=== PATIENT | female | born 1940 | race Caucasian/White ===

== ENCOUNTER 2016-10-08 11:06 | Observation (INO) ==
[2016-10-08] MEDS ORDERED: 0.9 % Sodium Chloride 1,000 ML IVC ONE (11:32)
--- NOTE | 2016-10-08 11:33 | Emergency Department Note ---
Disposition Clinical Impression: Intractable diarrhea, Mild dehydration Diverticulitis large intestine Qualifiers: Diverticulitis bleeding: without bleeding Diverticulitis complication: without perforation or abscess Qualified Code(s): K57.32 - Diverticulitis of large intestine without perforation or abscess without bleeding Disposition: Admitted As Inpatient Forms: ED Satisfaction Letter Nausea/Vomiting/Diarrhea HPI - General Chief complaint: ED Nausea/Vomiting/Diarrhea Stated complaint: diarrhea and weakness Time Seen by Provider: 10/08/16 11:27 Source: patient Limitations: no limitations Nursing Notes Reviewed: Yes Vital Signs Reviewed: Yes - History of Present Illness Pt Subjective Complaint: diarrhea Onset (ago): day(s) (4) Description of emesis: watery Description of Diarrhea: water Number of episodes: 15 Associated Abdominal Pain: No Improves with: nothing Worsens with: eating Context: recent antibiotic use (2 courses of amoxicillin for dental extraction) Associated symptoms: Reports: malaise, weakness, other (hypotension) - Related Data Home Medications Medication Instructions Recorded Confirmed Cholecalciferol (Vitamin D3) 1,000 unit PO DAILY 12/30/15 10/07/16 [Vitamin D3] Metformin [Glucophage] 500 mg PO BIDWM 12/30/15 10/07/16 Metoprolol [Lopressor] 50 mg PO BID 12/30/15 10/07/16 [place]-3 Fatty Acids [Fish Oil] 1 mg PO DAILY 12/30/15 10/07/16 Previous Rx's Medication Instructions Recorded HYDROcodone/Acet 5/325 mg [Pier[place] 1 tab PO Q6H PRN #10 tab 09/28/16 5-325 mg] Diphenoxylate/Atropine [Lomotil] 1 - 2 tab PO TID PRN #20 tablet 10/07/16 Ondansetron [Zofran] 8 mg PO TID PRN #20 tablet 10/07/16 Allergies Allergy/AdvReac Type Severity Reaction Status Date / Time No Known Allergies Allergy Verified 10/07/16 14:19 All systems ED: reviewed and negative except as stated. Constitutional: Reports: weakness. Denies: fever Gastrointestinal: Denies: nausea, vomiting, hematemesis, melena, hematochezia Past Medical History - Past Medical History Source: patient, nursing notes reviewed Medical history: Reports: diabetes, hypertension - Social History Smoking Status: Never smoker Smokeless Tobacco Status: No Alcohol use: Reports: none Drug use: Reports: none Physical Exam - General Limitations: no limitations General appearance: alert, in no apparent distress - Head Head exam: atraumatic, normocephalic, normal inspection - Eye Eye exam: Present: normal appearance, PERRL, EOMI - Expanded Eye Exam Pupils: Left: reactive - ENT ENT exam: normal exam, normal oropharynx, mucous membranes moist - Expanded ENT Exam External ear exam: Present: normal external inspection Mouth exam: Present: normal external inspection Teeth exam: Present: normal inspection Throat exam: Present: normal inspection - Neck Neck exam: Present: normal inspection, full ROM, trachea midline - Chest Chest inspection: Present: normal inspection, symmetric chest wall rise - Respiratory Respiratory exam: Present: normal lung sounds bilaterally - Cardiovascular Cardiovascular exam: Present: regular rate, normal rhythm, normal heart sounds - Abdominal Exam Abdominal exam: Present: soft, Non-Tender. Absent: tenderness, distention, guarding, rebound, rigidity - Extremities Exam Extremities exam: Present: normal inspection, full ROM. Absent: tenderness, pedal edema - Expanded Upper Extremity Exam Shoulder exam: Present: normal inspection, full ROM Arm exam: Present: normal inspection, full ROM Elbow exam: Present: normal inspection, full ROM Forearm/Wrist exam: Present: normal inspection, full ROM Hand exam: Present: normal inspection, full ROM Vascular exam: Normal: capillary refill, radial pulse - Expanded Lower Extremity Exam Hip/Pelvis exam: Present: normal inspection, full ROM Upper leg exam: Present: normal inspection, full ROM Knee exam: Present: normal inspection, full ROM Lower leg exam: Present: normal inspection, full ROM Ankle exam: Present: normal inspection, full ROM Foot/toe exam: Present: normal inspection, full ROM Neurovascular/Tendon exam: Absent: motor deficit, sensory deficit, tendon deficit - Back Exam Back exam: Present: normal inspection, full ROM. Absent: tenderness - Neurological Exam Neurological exam: Present: alert, oriented X3 - Expanded Neurological Exam Patient oriented to: Present: person, place, time Coma Scale Eye Opening: Spontaneous Coma Scale Motor Response: Obeys Commands Coma Scale Verbal Response: Oriented Coma Scale Total: 15 - Psychiatric Psychiatric exam: Present: normal affect, normal mood - Skin Skin exam: Present: warm, dry, intact, normal color Course - Consultations Consultation #1: dr. christ medina, stool for c-diff then antibiotic Time: 15:16 Vital Signs Temperature 97.6 F 04/02/17 11:08 Pulse Rate 65 10/08/16 11:08 Respiratory Rate 18 10/08/16 11:08 Blood Pressure 111/67 10/08/16 11:08 O2 Sat by Pulse Oximetry 100 10/08/16 11:08 Temperature 97.6 F 10/08/16 11:08 Pulse Rate 75 10/08/16 13:53 Respiratory Rate 18 10/08/16 13:53 Blood Pressure 117/65 10/08/16 13:53 O2 Sat by Pulse Oximetry 97 10/08/16 13:53 Oxygen Delivery Oxygen Delivery Room Air Nausea/Vomiting/Diarrhea - Lab Data Result diagrams: 10/08/16 11:46 10/08/16 11:46 Lab Results 10/08/16 10/08/16 Range/Units 11:46 11:46 WBC 8.5 (4.3-11.1) K/mcL RBC 3.93 (3.82-4.97) M/mcL Hgb 11.1 L (11.5-15.4) g/dL Hct 33.8 L (35.3-44.9) % MCV 86.0 (83.0-100.0) fL MCH 28.2 (28.0-33.3) pg MCHC 32.8 (31.6-35.5) g/dL RDW 13.9 (11.5-14.5) % Plt Count 279 (140-400) K/mcL MPV 10.3 (9.4-12.4) fL Immature Gran % 0.5 (0-4) % Seg Neutrophils % 69.2 % Lymphocytes % 23.0 % Monocytes % 4.9 % Eosinophils % 2.3 % Basophils % 0.1 % Neutrophils # 5.9 (1.6-8.9) K/mcL Lymphocytes # 2.0 (0.6-4.6) K/mcL Monocytes # 0.4 (0.0-1.3) K/mcL Eosinophils # 0.2 (0.0-0.6) K/mcL Basophils # 0.0 (0.0-0.2) K/mcL Sodium 135 L (136-145) mEq/L Potassium 3.6 (3.5-4.5) mEq/L Chloride 102 (98-109) mEq/L Carbon Dioxide 18 L (19-29) mEq/L BUN 35 H (7-20) mg/dL Creatinine 1.48 H (0.57-1.11) mg/dL Est GFR ( Amer) 42 L (> 60) Est GFR (Non-Af Amer) 34 L (> 60) BUN/Creatinine Ratio 24 (6-26) Glucose 128 H (70-99) mg/dL Calculated Osmolality 290 (280-300) Calcium 9.9 (8.6-10.8) mg/dL Total Bilirubin 0.4 (0.2-1.2) mg/dL AST 29 (5-34) Units/L ALT 18 (0-55) Units/L Alkaline Phosphatase 81 (38-126) Units/L Serum Total Protein 7.8 (6.0-8.3) g/dL Albumin 3.6 (3.5-5.0) g/dL Globulin 4.2 H (2.4-3.5) g/dL Albumin/Globulin Ratio 0.9 L (1.1-2.2) Lipase 127 H (8-78) Units/L
[2016-10-08 11:56] LABS: Basophils % 0.1 %; Eosinophils # 0.2 K/mcL (0.0-0.6); Eosinophils % 2.3 %; Hematocrit 33.8 % (35.3-44.9); Hemoglobin 11.1 g/dL (11.5-15.4); Immature Granulocytes % 0.5 % (0-4); Mean Corpuscular HGB Conc 32.8 g/dL (31.6-35.5); Mean Corpuscular Hemoglobin 28.2 pg (28.0-33.3); Mean Platelet Volume 10.3 fL (9.4-12.4); Monocytes # 0.4 K/mcL (0.0-1.3); Monocytes % 4.9 %; Neutrophils # 5.9 K/mcL (1.6-8.9); Platelet Count 279 K/mcL (140-400); Red Blood Count 3.93 M/mcL (3.82-4.97); Red Cell Distribution Width 13.9 % (11.5-14.5); Segmented Neutrophils % 69.2 %
[2016-10-08 12:07] LABS: Albumin 3.6 g/dL (3.5-5.0); Albumin/Globulin Ratio 0.9 (1.1-2.2); Bilirubin,Total 0.4 mg/dL (0.2-1.2); Calcium 9.9 mg/dL (8.6-10.8); Globulin 4.2 g/dL (2.4-3.5); Potassium 3.6 mEq/L (3.5-4.5); Total Protein 7.8 g/dL (6.0-8.3)
[2016-10-08] MEDS ORDERED: Naloxone 0.4 MG/ML INJ IVP PRN (16:36)
[2016-10-08] MEDS ORDERED: Acetaminophen 325 MG TABLET PO PRN (16:36)
[2016-10-08] MEDS ORDERED: D5% in Water 1,000 ML IVC PRN (16:40)
[2016-10-08] MEDS ORDERED: *HR* Dextrose 50 % in Water (Syg) 50 ML SYRINGE IVP PRN (16:40)
[2016-10-08] MEDS ORDERED: Dextrose Gel 15 GM PO PRN ×2 (16:40)
--- NOTE | 2016-10-08 16:50 | Internal Med History&Physical ---
<GuptaNery M - Last Filed: 10/08/16 17:06> Date of Encounter: 10/08/16 Time of Encounter: 16:41 Assessment and Plan (1) Diverticulitis large intestine Current visit: Yes Status: Acute Patient with diarrhea for last [address] abd/pelvis showed acute mild diverticulitis of proximal sigmoid colon. Low residue diet. IV fluids 0.9NS at 100mL/hr stool sent for C.diff. Stool cultures ordered. IVPB cipro and flagyl Qualifiers: Diverticulitis bleeding: without bleeding Diverticulitis complication: without perforation or abscess Qualified Code(s): K57.32 - Diverticulitis of large intestine without perforation or abscess without bleeding (2) Acute kidney injury Current visit: Yes Status: Acute BUN/Cr 35/1.48 likely due to diarrhea and dehydration. Patient received 1L bolus and will get IV fluids of 0.9NS at 100mL/hr. Avoid NSAIDS and nephrotoxins. Recheck chemistry in the morning. (3) Mild dehydration Current visit: Yes Status: Acute Patient with diarrhea for last 4 days. BUN/Cr 35/1.48. On exam, with dry mucous membranes. 1L fluid bolus given in ED IV fluids 0.9NS at 100mL/hr encourage PO intake. (4) Intractable diarrhea Current visit: Yes Status: Acute IV hydration 0.9NS at 100mL/hr stool sent for C.diff. Stool cultures ordered. IVPB cipro and flagyl (5) Type 2 diabetes mellitus Current visit: Yes Status: Acute Patient reports she was previously on metformin, but is now diet controlled. Will check blood sugars ACHS and give sliding scale correction dose. Hypoglycemic protocol. Qualifiers: Diabetes mellitus complication status: without complication Diabetes mellitus intermediate card tender insulin use: without senior living use Qualified Code(s): E11.9 - Type 2 diabetes mellitus without complications (6) DVT prophylaxis Current visit: Yes Status: Acute Ambulate with assistance anti-embolic stockings Heparin 5000u SQ TID Internal Medicine - H&P: HPI Chief complaint: diarrhea Admitted From: Emergency Dept Plans for Post Hospital Care: Home History of present illness: Ms. Villavicencio is a 76 year old female with hypertension, mitral valve stenosis and diet-controlled type 2 diabetes who presented to the ED today with complaints of diarrhea and weakness. She reports she had a tooth extraction last Sunday for whcih she received 2 rounds of amoxicillin, and she has not felt well since. she reports diarrhea started 4 days ago and is watery and has been worsening over the last 4 days to the point she is incontinent at times. She also reports increasing weakness, lightheadedness and dizziness. She reports poor appetite, but is able to tolerate food, and denies nausea or vomiting. She denies fever, chills. She denies chest pain, palpitations, shortness of breath. Evaluation in the ED included CT abd/pelvis which showed acute mild diverticulitis of the proximal sigmoid colon. WBC count was normal at 8.5. BUN and Creatinine were elevated to 35 and 1.48 respectively, likely due to dehydration. On exam, patient is pale, alert and oriented, in no acute distress. Heart has regular rate and rhythm with a diastolic murmur. Lungs are clear bilaterally to auscultation. Abdomen is soft, nontender with positive bowel sounds. Past Med Surg Social Fam HX - Past Medical History Medical history: diabetes, hypertension - Past Surgical History Surgical History: , cholecystectomy, hysterectomy - Social History Smoking Status: Never smoker Smokeless Tobacco Status: No Alcohol use: none Drug use: none - Family History Mother Living Status: Age at : 77 Cause of : pnuemonia Father Living Status: Age at : 80 Cause of : CVA, OR Hx Family Cardiac Disorders: Yes Internal Medicine - H&P: Meds Cholecalciferol (Vitamin D3) [Vitamin D3] 1,000 unit PO DAILY 12/30/15 [History] Metoprolol [Lopressor] 50 mg PO BID 12/30/15 [History] [place]-3 Fatty Acids [Fish Oil] 1 mg PO DAILY 12/30/15 [History] Diphenoxylate/Atropine [Lomotil] 1 - 2 tab PO TID PRN #20 tablet 10/07/16 [Rx] Lisinopril/Hydrochlorothiazide [Zestoretic 20-25 mg Tablet] 1 tab PO DAILY 10/08 [History] Allergies No Known Allergies Allergy (Verified 10/07/16 14:19) All Systems PM: A 10-system review of systems was performed and is negative for pertinent findings except as documented above in the HPI. - Constitutional Constitutional: weakness, no chills, no fever(s), no night sweats - EENT Eyes: no change in vision, no discharge, no pain, no photophobia Ears: no ear discharge, no ear pain, no tinnitus Nose, mouth and throat: no dysphagia, no nasal discharge, no neck pain, no sore throat - Cardiovascular Cardiovascular ROS IM: lightheadedness, no chest pain, no diaphoresis, no dyspnea, no palpitations, no syncope - Respiratory Respiratory: no cough, no dyspnea, no wheezing, no excessive phlegm production - Gastrointestinal Gastrointestinal: diarrhea, no abdominal pain, no hematemesis, no hematochezia, no melena, no nausea, no vomiting - Genitourinary Genitourinary: no change in urinary stream, no dysuria, no flank pain, no hematuria - Musculoskeletal Musculoskeletal ROS IM: no numbness, no tingling - Integumentary Integumentary IM: no rash, no unusual bruising - Neurological Neurological ROS: no confusion, no convulsions, no focal weakness, no numbness, no tingling, no tremor(s) - Hematologic/Lymphatic Hematologic/Lymphatic: no easy bruising - Constitutional Vitals: Temp Pulse Resp BP Pulse Ox 97.6 F 77 16 125/64 95 10/08/16 11:08 10/08/16 15:19 10/08/16 15:37 10/08/16 15:37 10/08/16 15:19 General appearance: Present: A&O X 3, pleasant, no acute distress - Head Head exam: Present: atraumatic, normocephalic - Eye Eye exam: Present: PERRL, conjuntiva pink, sclera anicteric Pupils: Present: PERRL - ENT ENT exam: Present: mucous membranes dry - Neck Neck exam general surgery: Present: supple, trachea midline. Absent: lymphadenopathy - Respiratory Respiratory exam: Present: CTAB. Absent: accessory muscle use, rales, rhonchi, wheezes - Cardiovascular Cardiovascular exam: Present: RRR, +S1, +S2. Absent: diastolic murmur, gallop, rubs, systolic murmur - GI/Abdominal GI/Abdominal exam: Present: normal bowel sounds, soft, no peritoneal signs. Absent: distended, tenderness - Extremities Exam Extremities exam: Present: warm, radial pulses palpable and symetrical. Absent : calf tenderness, cyanotic, pedal edema - Neurological Exam Neurological exam: Present: CN II-XII intact, oriented X3, no focal deficits. Absent: facial droop, speech deficit - Skin Skin exam: Present: dry, intact Internal Med - H&P Results - Labs CBC & Chem 7: 10/08/16 11:46 10/08/16 11:46 Labs: All Lab Results (24 Hours) 10/08/16 10/08/16 Range/Units 11:46 11:46 WBC 8.5 (4.3-11.1) K/mcL RBC 3.93 (3.82-4.97) M/mcL Hgb 11.1 L (11.5-15.4) g/dL Hct 33.8 L (35.3-44.9) % MCV 86.0 (83.0-100.0) fL MCH 28.2 (28.0-33.3) pg MCHC 32.8 (31.6-35.5) g/dL RDW 13.9 (11.5-14.5) % Plt Count 279 (140-400) K/mcL MPV 10.3 (9.4-12.4) fL Immature Gran % 0.5 (0-4) % Seg Neutrophils % 69.2 % Lymphocytes % 23.0 % Monocytes % 4.9 % Eosinophils % 2.3 % Basophils % 0.1 % Neutrophils # 5.9 (1.6-8.9) K/mcL Lymphocytes # 2.0 (0.6-4.6) K/mcL Monocytes # 0.4 (0.0-1.3) K/mcL Eosinophils # 0.2 (0.0-0.6) K/mcL Basophils # 0.0 (0.0-0.2) K/mcL Sodium 135 L (136-145) mEq/L Potassium 3.6 (3.5-4.5) mEq/L Chloride 102 (98-109) mEq/L Carbon Dioxide 18 L (19-29) mEq/L BUN 35 H (7-20) mg/dL Creatinine 1.48 H (0.57-1.11) mg/dL Est GFR ( Amer) 42 L (> 60) Est GFR (Non-Af Amer) 34 L (> 60) BUN/Creatinine Ratio 24 (6-26) Glucose 128 H (70-99) mg/dL Calculated Osmolality 290 (280-300) Calcium 9.9 (8.6-10.8) mg/dL Total Bilirubin 0.4 (0.2-1.2) mg/dL AST 29 (5-34) Units/L ALT 18 (0-55) Units/L Alkaline Phosphatase 81 (38-126) Units/L Serum Total Protein 7.8 (6.0-8.3) g/dL Albumin 3.6 (3.5-5.0) g/dL Globulin 4.2 H (2.4-3.5) g/dL Albumin/Globulin Ratio 0.9 L (1.1-2.2) Lipase 127 H (8-78) Units/L - Diagnostic Studies CT scan - abdomen Additional comments: Abdomen/Pelvis CT 10/08/16 12:32 IMPRESSION: 1. Acute mild diverticulitis involving the proximal sigmoid colon. 2. 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 3. Locule of air within the lumen of the bladder could be due to cystitis or recent manipulation ; correlate with urinalysis. D/ / Tripp Pradhan MD / Tripp Pradhan MD Interpreting Provider: Tripp Pradhan MD <Rich Almgauer - Last Filed: 10/08/16 19:34> Date of Encounter: 10/08/16 Internal Medicine - H&P: HPI History of present illness: Ms. Villavicencio is a 76 year old female All Systems PM: A 10-system review of systems was performed and is negative for pertinent findings except as documented above in the HPI. - Constitutional Vitals: Temp Pulse Resp BP Pulse Ox 97.6 F 77 16 125/64 95 10/08/16 11:08 10/08/16 15:19 10/08/16 15:37 10/08/16 15:37 10/08/16 15:19 Internal Med - H&P Results - Labs CBC & Chem 7: 10/08/16 11:46 10/08/16 11:46 - Attending Attestation I examined this patient and my medical decision-making was reviewed with the Advanced Practice Nurse on 10/08/16. I agree with the documented findings, disposition and treatment plan as described except to the extent set forth below. 76 y/o female presents with profuse diarrhea for 5 days. Recent Amoxil treatment. No abd pain. Does have appetite. No fever or chills. Exam Alert. Comfortable Eating dinner Heart reg Lungs clear Abd nontender C diff negative I/P 1. Acute diverticulitis Further information and plan as above in H&P
[2016-10-08 17:04] LABS: Hemoglobin A1C 6.1 %
[2016-10-08] MEDS: 0.9 % Sodium Chloride 1,000 ML IVC SCH (18:36)
[2016-10-08] MEDS: Insulin LISPRO 300 UNITS/3 ML VIAL SQ SCH (20:14)
[2016-10-08] MEDS: *HR* Heparin 5,000 UNIT/ML VIAL SQ SCH (20:14)
[2016-10-08] MEDS: MetroNIDAZOLE 500 MG/100 ML 500 MG/100 ML BAG IVPB SCH (23:50)
[2016-10-09 04:51] LABS: Basophils % 0.1 %; Eosinophils # 0.2 K/mcL (0.0-0.6); Eosinophils % 2.2 %; Immature Granulocytes % 0.6 % (0-4); Lymphocytes % 29.7 %; Mean Corpuscular HGB Conc 33.3 g/dL (31.6-35.5); Mean Corpuscular Hemoglobin 28.3 pg (28.0-33.3); Mean Platelet Volume 10.9 fL (9.4-12.4); Monocytes # 0.4 K/mcL (0.0-1.3); Monocytes % 5.7 %; Neutrophils # 4.2 K/mcL (1.6-8.9); Platelet Count 224 K/mcL (140-400); Red Blood Count 3.53 M/mcL (3.82-4.97); Red Cell Distribution Width 14.1 % (11.5-14.5); Segmented Neutrophils % 61.7 %
[2016-10-09 05:12] LABS: BUN/Creatinine Ratio 23 (6-26); Calcium 9.2 mg/dL (8.6-10.8); Carbon Dioxide 17 mEq/L (19-29); Chloride 110 mEq/L (98-109); Glucose 119 mg/dL (70-99); Osmolality,Calculated 293 (280-300); Potassium 3.5 mEq/L (3.5-4.5); Sodium 139 mEq/L (136-145); eGFR For African Americans > 60 (> 60); eGFR For Non-African Americans 51 (> 60)
[2016-10-09 05:14] LABS: Blood Urea Nitrogen 24 mg/dL (7-20)
[2016-10-09] MEDS: *HR* Heparin 5,000 UNIT/ML VIAL SQ SCH ×3 (05:34→21:52)
[2016-10-09] MEDS: 0.9 % Sodium Chloride 1,000 ML IVC SCH ×2 (05:35→17:13)
[2016-10-09] MEDS ORDERED: *HR* Enoxaparin 40 MG/0.4 ML SYRINGE SQ SCH (06:00)
[2016-10-09] MEDS: MetroNIDAZOLE 500 MG/100 ML 500 MG/100 ML BAG IVPB SCH ×3 (07:36→23:56)
[2016-10-09] MEDS: Insulin LISPRO 300 UNITS/3 ML VIAL SQ SCH ×4 (07:36→21:55)
[2016-10-09] MEDS: OMEGA PO SCH (07:38)
[2016-10-09] MEDS: FATTY ACIDS PO SCH (07:38)
[2016-10-09] MEDS: Lactobacillus 1 EACH CAP.SPRINK PO SCH ×2 (08:35→21:52)
--- NOTE | 2016-10-09 11:09 | Internal Med Progress Note ---
Date of Encounter: 10/09/16 Time of Encounter: 11:07 - Assessment and plan (1) Diverticulitis large intestine Current Visit: Yes Status: Acute Assessment and plan: Patient continues to have diarrhea. C. difficile was negative. On ciprofloxacin and Flagyl. We will continue these medications. Change diet to full liquid diet. Moderate risk for complications. Continue IV hydration. Qualifiers: Diverticulitis bleeding: without bleeding Diverticulitis complication: without perforation or abscess Qualified Code(s): K57.32 - Diverticulitis of large intestine without perforation or abscess without bleeding (2) Mild dehydration Current Visit: Yes Status: Acute Assessment and plan: Improving with hydration (3) Intractable diarrhea Current Visit: Yes Status: Acute Assessment and plan: C. difficile negative. We will start her on antimotility agents if this continues. (4) Acute kidney injury Current Visit: Yes Status: Resolved (5) DVT prophylaxis Current Visit: Yes Status: Acute Assessment and plan: With heparin subcutaneous (6) Type 2 diabetes mellitus Current Visit: Yes Status: Chronic Assessment and plan: Fairly controlled. On sliding scale insulin. Qualifiers: Diabetes mellitus complication status: without complication Diabetes mellitus termite technician insulin use: without care home use Qualified Code(s): E11.9 - Type 2 diabetes mellitus without complications - Subjective Interval history: Patient continues to have diarrhea. Also has mild abdominal discomfort. Denies any hematochezia. No nausea or vomiting. Has been tolerating diet well. - Constitutional Vitals: Temp Pulse Resp BP Pulse Ox 98.1 F 81 18 136/74 97 10/09/16 06:55 10/09/16 06:55 10/09/16 06:55 10/09/16 06:55 10/09/16 07:04 General appearance: Present: cooperative, A&O X 3, pleasant, no acute distress, answers questions appropriately - Respiratory Respiratory exam: Present: CTAB. Absent: accessory muscle use, rales, rhonchi, wheezes - Cardiovascular Cardiovascular exam: Present: RRR, +S1, +S2. Absent: diastolic murmur, gallop, rubs, systolic murmur - GI/Abdominal GI/Abdominal exam: Present: normal bowel sounds, soft, no peritoneal signs. Absent: distended, tenderness - Extremities Exam Extremities exam: Present: warm, radial pulses palpable and symetrical. Absent : calf tenderness, cyanotic, pedal edema - Neurological Exam Neurological exam: Present: alert, oriented X3, no focal deficits, strengths equal and symetr throughout. Absent: facial droop, speech deficit Internal Medicine: Result - Labs CBC & Chem 7: 10/09/16 04:10 10/09/16 04:10 Labs: Short CBC 10/09/16 Range/Units 04:10 WBC 6.8 (4.3-11.1) K/mcL Hgb 10.0 L (11.5-15.4) g/dL Hct 30.0 L (35.3-44.9) % Plt Count 224 (140-400) K/mcL Neutrophils # 4.2 (1.6-8.9) K/mcL BMP 10/09/16 04:10 Sodium 139 Potassium 3.5 Chloride 110 H Carbon Dioxide 17 L BUN 24 H D Creatinine 1.06 Glucose 119 H Calcium 9.2 - VTE Documentation of Mechanical Device: Graduated compression elastic hosiery Consult Discharge Plan - Plan Referrals: Job Naqvi, DO [Primary Care Provider] - - Attending Attestation This document has been at least partially created by [employer] recognition technology by Dr. Johnson. Errors in grammar, wording or other phrases may exist. If errors are found after the documentation is signed, they will be addressed individually in the addendum section of this document when appropriate.
--- NOTE | 2016-10-09 13:23 | Electrocardiograph Report ---
[address] [place] [address] Test Date: 2016-10-08 Pat Name: Ligia Villavicencio Department: 103 Room: 3A22 Gender: F Retail Reset Merchandiser: : 1940 Requested By: Xenia Johnson Order Number: [id number] Reading MD: Juan Pablo Schmitt MD Measurements Intervals Freedom Rate: 67 P: 63 ID: [id number] QRS: -48 QRSD: 96 T: 86 QT: 439 QTc: 454 Interpretive Statements SINUS RHYTHM WITH FIRST DEGREE AV BLOCK LEFT ANTERIOR FASCICULAR BLOCK LEFT VENTRICULAR HYPERTROPHY POSSIBLE ANTEROSEPTAL MYOCARDIAL INFARCTION, OF INDETERMINATE AGE Electronically Signed On 10-09-2016 13:22:13 EDT by Juan Pablo Schmitt MD
[2016-10-10] MEDS: 0.9 % Sodium Chloride 1,000 ML IVC SCH (04:37)
[2016-10-10] MEDS: *HR* Heparin 5,000 UNIT/ML VIAL SQ SCH (05:31)
[2016-10-10 06:00] LABS: Basophils % 0.2 %; Eosinophils # 0.2 K/mcL (0.0-0.6); Eosinophils % 3.5 %; Hematocrit 28.6 % (35.3-44.9); Immature Granulocytes % 0.7 % (0-4); Lymphocytes # 1.7 K/mcL (0.6-4.6); Lymphocytes % 37.2 %; Mean Corpuscular HGB Conc 31.5 g/dL (31.6-35.5); Mean Corpuscular Hemoglobin 28.1 pg (28.0-33.3); Mean Corpuscular Volume 89.4 fL (83.0-100.0); Mean Platelet Volume 10.6 fL (9.4-12.4); Monocytes # 0.3 K/mcL (0.0-1.3); Monocytes % 6.7 %; Neutrophils # 2.4 K/mcL (1.6-8.9); Platelet Count 164 K/mcL (140-400); Segmented Neutrophils % 51.7 %
[2016-10-10 06:16] LABS: BUN/Creatinine Ratio 16 (6-26); Blood Urea Nitrogen 15 mg/dL (7-20); Carbon Dioxide 16 mEq/L (19-29); Chloride 116 mEq/L (98-109); Glucose 84 mg/dL (70-99); Osmolality,Calculated 292 (280-300); Potassium 3.8 mEq/L (3.5-4.5); Sodium 141 mEq/L (136-145); eGFR For African Americans > 60 (> 60); eGFR For Non-African Americans > 60 (> 60)
[2016-10-10] MEDS: Insulin LISPRO 300 UNITS/3 ML VIAL SQ SCH ×2 (08:02→11:30)
[2016-10-10] MEDS: MetroNIDAZOLE 500 MG/100 ML 500 MG/100 ML BAG IVPB SCH (08:02)
[2016-10-10] MEDS: OMEGA PO SCH (08:03)
[2016-10-10] MEDS: Lactobacillus 1 EACH CAP.SPRINK PO SCH (08:03)
[2016-10-10] MEDS: FATTY ACIDS PO SCH (08:03)
[2016-10-10 10:57] LABS: Adenovirus F 40/41 PCR Not detected (Not detect); Astrovirus PCR ***DETECTED*** (Not detect); C.difficile Toxin A/B by PCR Not detected (Not detect); Campylobacter by PCR Not detected (Not detect); Cryptosporidium by PCR Not detected (Not detect); Cyclospora cayetanensis PCR Not detected (Not detect); E. coli O157 by PCR Not detected (Not detect); Entamoeba histolytica PCR Not detected (Not detect); Enteroaggregative E.coli(EAEC) Not detected (Not detect); Enteropathogenic E.coli(EPEC) Not detected (Not detect); Enterotoxigenic E.coli (ETEC) Not detected (Not detect); Giardia lamblia PCR Not detected (Not detect); Norovirus GI/GII PCR Not detected (Not detect); Plesiomonas shigelloides PCR Not detected (Not detect); Rotavirus A PCR Not detected (Not detect); Salmonella PCR Not detected (Not detect); Sapovirus PCR Not detected (Not detect); Shig/EnteroinvasiveE coli EIEC Not detected (Not detect); Shigalike tox-prod E coli STEC Not detected (Not detect); Vibrio PCR Not detected (Not detect); Vibrio cholerae PCR Not detected (Not detect); Yersinia enterocolitica PCR Not detected (Not detect)
--- NOTE | 2016-10-10 11:13 | Discharge Summary ---
Date of Encounter: 10/13/16 Time of Encounter: 10:00 - Discharge Medications Prescriptions: Loperamide [Imodium] 2 mg PO Q4HR PRN #30 capsule PRN Reason: Diarrhea Levofloxacin [Levaquin] 750 mg PO DAILY #5 tablet MetroNIDAZOLE [Flagyl] 500 mg PO TID #15 tablet Home Medications: Cholecalciferol (Vitamin D3) [Vitamin D3] 1,000 unit PO DAILY 12/30/15 [History] Metoprolol [Lopressor] 50 mg PO BID 12/30/15 [History] [place]-3 Fatty Acids [Fish Oil] 1 mg PO DAILY 12/30/15 [History] Lisinopril/Hydrochlorothiazide [Zestoretic 20-25 mg Tablet] 1 tab PO DAILY 10/08 [History] Levofloxacin [Levaquin] 750 mg PO DAILY #5 tablet 10/10/16 [Rx] Loperamide [Imodium] 2 mg PO Q4HR PRN #30 capsule 10/10/16 [Rx] MetroNIDAZOLE [Flagyl] 500 mg PO TID #15 tablet 10/10/16 [Rx] Allergies/Adverse Reactions: Allergies No Known Allergies Allergy (Verified 10/07/16 14:19) Procedures/tests Complete & Pending: Procedures Performed prior 72 hours Category Date Time Status ECG 12 lead ECG [ECG] Routine Y 10/08/16 11:31 Completed Date of admission: 10/08/16 15:22 Primary care physician: Job Naqvi DO - Patient Status Disposition: Home, Self-Care Condition: Fair Functional capacity at discharge: independent ambulation Overall status at discharge: patient is back to baseline - Discharge Instructions Follow Up With: Job Naqvi DO [Primary Care Provider] - 10/13/16 11:30 am - Diet and Activity Activity: increase activity as tolerated Diet: advance to your usual diet Hospital course: Hospital presentation: Ms. Villavicencio is a 76 year old female with hypertension, mitral valve stenosis and diet-controlled type 2 diabetes who presented to the ED today with complaints of diarrhea and weakness. She reports she had a tooth extraction last Sunday for whcih she received 2 rounds of amoxicillin, and she has not felt well since. she reports diarrhea started 4 days ago and is watery and has been worsening over the last 4 days to the point she is incontinent at times. She also reports increasing weakness, lightheadedness and dizziness. She reports poor appetite, but is able to tolerate food, and denies nausea or vomiting. She denies fever, chills. She denies chest pain, palpitations, shortness of breath. Evaluation in the ED included CT abd/pelvis which showed acute mild diverticulitis of the proximal sigmoid colon. WBC count was normal at 8.5. BUN and Creatinine were elevated to 35 and 1.48 respectively, likely due to dehydration. Hospital course: The patient was admitted to the medical service. She was made nothing by mouth, given IV fluids and IV antibiotics ciprofloxacin and Flagyl. She reported diarrhea and her stool tested negative for C. difficile. She made a good clinical improvement and she was started on diet. Initially clear liquid and this was advanced to a cardiac and diabetic diet. Her antibiotics were converted to Levaquin and Flagyl oral and she will be discharged home in a stable condition. - Time Spent with Patient Total time spent providing and/or coordinating discharge services: Greater than 30 minutes (I have spent 32 minutes coordinating this discharge.) - Constitutional Vitals: Temp Pulse Resp BP Pulse Ox 98.3 F 70 16 166/74 97 10/10/16 07:00 10/10/16 07:00 10/10/16 07:00 10/10/16 07:00 10/10/16 07:00 General appearance: Present: cooperative, A&O X 3, pleasant, no acute distress, answers questions appropriately - Respiratory Respiratory exam: Present: CTAB. Absent: accessory muscle use, rales, rhonchi, wheezes - Cardiovascular Cardiovascular exam: Present: RRR, +S1, +S2. Absent: diastolic murmur, gallop, rubs, systolic murmur - GI/Abdominal GI/Abdominal exam: Present: normal bowel sounds, soft, no peritoneal signs. Absent: distended, tenderness - Extremities Exam Extremities exam: Present: warm, radial pulses palpable and symetrical. Absent : calf tenderness, cyanotic, pedal edema - VTE Documentation of Mechanical Device: Graduated compression elastic hosiery
[2016-10-10 11:33] VITALS: BP 129/67
== END 2016-10-10 13:00 | disposition home or self-care (01) ==
LOC: 3ANU 11:06 → EMEROO 11:06 → SUATTDRO 15:22 → 3ANU 16:44
PROVIDERS: ADMIT Internal Medicine; ATTEND Internal Medicine